=== PATIENT | female | born 1960 | race Caucasian/White ===

== ENCOUNTER → 2020-09-21 | Outpatient (CLI) | payer BC ==
--- NOTE | 2020-09-21 12:58 | Diagnostic Imaging Report ---
PROCEDURE: CT sinuses without contrast. TECHNIQUE: Multiple contiguous axial images were obtained through the sinuses without the use of intravenous contrast. Coronal and sagittal reformations were then performed. Auto Exposure Controls were utilized during the CT exam to meet ALARA standards for radiation dose reduction. INDICATION: Chronic sinusitis. COMPARISON: 11/01/2010 FINDINGS: The minimally visualized intracranial contents are grossly unremarkable. The orbits are unremarkable. Visualized portion of the parapharyngeal fat is symmetric and well-maintained. Visualized muscles of mastication are unremarkable. The frontal sinuses are clear. Minimal mucosal thickening within the right frontoethmoidal recess. Postsurgical changes are noted involving bilateral antral windows with associated ethmoidectomy and resection of anterior portions of the right middle turbinate. The bilateral ostiomeatal complexes are widely patent given the postsurgical changes. Minimal scattered mucosal thickening within the residual ethmoid air cells. The sphenoid sinuses are clear. Moderate mucosal thickening with minimal fluid associated with the left maxillary sinus. Minimal mucosal thickening involving the right maxillary sinus. The lamina papyracea are intact. No temporomandibular joint dislocation. No acute facial fracture. The mastoid air cells and middle ear cavities are clear. IMPRESSION: Moderate mucosal thickening with mild amount of fluid within the left maxillary sinus. Postsurgical changes involving the bilateral maxillary sinuses and ethmoid air cells as described above with the bilateral ostiomeatal complexes appearing widely patent secondary to the postsurgical changes. Dictated by: Dictated on workstation # [id number]
== END ==
LOC: RAD 11:15
PROVIDERS: ATTEND Otolaryngology Otolaryngology/Facial Plastic Surgery
DX: J32.8 Other chronic sinusitis (principal)
CPT/HCPCS: 70486